=== PATIENT | male | born 1985 | race Caucasian/White ===

== ENCOUNTER 2016-05-25 10:32 | Inpatient (IN) | payer OTHER ==
[2016-05-25 10:59] VITALS: BMI 40.6
--- NOTE | 2016-05-25 13:45 | HP ---
COWS - Scale Resting Pulse: 2= [place] 101-120 Sweatin=Flushed/Facial Moisture Restless Observation: 3= Extraneous Movement Pupil Size: 2= Moderately Dilated Bone or Joint Aches: 2= Severe Diffuse Aches Runny Nose/ Eye Tearin= Runny Nose/Eyes GI Upset > 30mins: 3= Vomiting/Diarrhea Tremor Observation: 2= Slight Tremor Visible Yawning Observation: 2= >3x During Session Anxiety or Irritability: 2=Irritable/Anxious Goose Flesh Skin: 0=Smooth Skin COWS Score: 22 CIWA Score - CIWA Score Nausea/Vomitin Muscle Tremors: 3 Anxiety: 3 Agitation: 3 Paroxysmal Sweats: 2 Orientation: 0-Oriented Tacttile Disturbances: 2-Mild Itch/Numbness/Burn Auditory Disturbances: 2-Mild Harshness/Frighten Visual Disturbances: 2-Mild Sensitivity Headache: 2-Mild CIWA-Ar Total Score: 22 Admission [facility] - HPI Chief Complaint: i need help to stop using drugs xanax,cocaine,cannabis,heroin,mmtp 45 mgs/day, last medicated today Allergies/Adverse Reactions: Allergies Allergy/AdvReac Type Severity Reaction Status Date / Time shrimp Allergy Severe Rash Verified 05/25/16 13:18 History of Present Illness: this 30 years old male with xanax dependence,cocaine dependence,cannabis dependence,heroin dependence,mmtp 45 mgs/day,last medicated today, last detox [facility] 04/03 nicotine dependence anxiety,depression stated trying to overdose himself sat 05/23/16 no significant period of sobriety Exam Limitations: No Limitations - Ebola screening Have you traveled outside of the country in the last 21 days: No Have you had contact with anyone from an Ebola affected area: No Have you been sick,other than usual withdrawal symptoms: No - Review of Systems Constitutional: Chills, Diaphoresis, Malaise, Night Sweats, Changes in sleep, Weakness EENT: reports: Nose Congestion Respiratory: reports: No Symptoms reported Cardiac: reports: Palpitations GI: reports: Nausea, Poor Appetite, Vomiting, Abdominal cramping : reports: No Symptoms Reported Musculoskeletal: reports: Back Pain, Muscle Pain Integumentary: reports: Dryness Neuro: reports: Headache, Tremors Endocrine: reports: No Symptoms Reported Hematology: reports: No Symptoms Reported Psychiatric: reports: Depressed Patient History - Patient Medical History Hx Anemia: No Hx Asthma: No Hx Chronic Obstructive Pulmonary Disease (COPD): No Hx Cancer: No Hx Cardiac Disorders: No Hx Congestive Heart Failure: No Hx Hypertension: No Hx Hypercholesterolemia: No Hx Pacemaker: No HX Cerebrovascular Accident: No Hx Seizures: No Hx Dementia: No Hx Diabetes: No Hx Gastrointestinal Disorders: No Hx Liver Disease: No Hx Genitourinary Disorders: No Hx Sexually Transmitted Disorders: No Hx Renal Disease (ESRD): No Hx Thyroid Disease: No Hx Human Immunodeficiency Virus (HIV): No (last 03/03) Hx Hepatitis C: No Hx Depression: Yes (anxiety) Hx Suicide Attempt: Yes (overdose on 05/23/16) Other Medical History: nbo suicidal,no homicidal - Patient Surgical History Past Surgical History: No - PPD History Previous Implant?: Yes Documented Results: Negative w/o proof Implanted On Prior [facility] Admission?: No PPD to be Administered?: Yes - Smoking Cessation Smoking history: Current every day smoker Have you smoked in the past 12 months: Yes Aproximately how many cigarettes per day: 40 Cigars Per Day: 0 Hx Chewing Tobacco Use: No Initiated information on smoking cessation: Yes 'Breaking Loose' booklet given: 05/25/16 - Substance & Tx. History Hx Alcohol Use: No Hx Substance Use: Yes Substance Use Type: Cocaine, Heroin, Marijuana, Tranquilizers - Substances Abused Alprazolam (Xanax) Route: Oral Frequency: Daily Amount used: 12 mg Age of first use: 30 Date of Last Use: 05/23/16 Heroin Route: Inhalation Frequency: Daily Amount used: 6 bags Age of first use: 27 Date of Last Use: 05/25/16 Cocaine Route: Inhalation Frequency: Daily Amount used: 2 grams Age of first use: 25 Date of Last Use: 05/24/16 Marijuana/Hashish Route: Smoking Frequency: Daily Amount used: $20 Age of first use: 10 Date of Last Use: 05/24/16 Family Disease History - Family Disease History Family History: Denies Admission Physical Exam [facility] - Vital Signs Vital Signs: Vital Signs - 24 hr 05/25/16 10:56 Temperature 97.1 F L Pulse Rate 105 H Respiratory 18 Rate Blood Pressure 122/75 - Physical General Appearance: Yes: Moderate Distress, Tremorous, Irritable, Sweating HEENTM: Yes: Normal ENT Inspection, Pharynx Normal, Nasal Congestion Respiratory: Yes: Lungs Clear, Normal Breath Sounds, No Respiratory Distress Neck: Yes: No masses,lesions,Nodules, Supple, Trachea in good position Breast: Yes: Within Normal Limits Cardiology: Yes: Regular Rhythm, Tachycardia Abdominal: Yes: Within Normal Limits, Normal Bowel Sounds, Non Tender, Flat, Soft Genitourinary: Yes: Within Normal Limits Back: Yes: Normal Inspection, Muscle Spasm Musculoskeletal: Yes: Back pain Extremities: Yes: Normal Inspection, Normal Range of Motion, Tremors Neurological: Yes: glove turner II-XII NML intact, Fully Oriented, Alert, Motor Strength 5/5 Integumentary: Yes: Dry Lymphatic: Yes: Within Normal Limits - Diagnostic (1) Uncomplicated sedative, hypnotic or anxiolytic withdrawal Status: Acute (2) Cocaine dependence Status: Acute (3) Cannabis dependence Status: Acute (4) Opioid dependence Status: Acute (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 (6) Eczema Status: Acute (7) Nicotine dependence Status: Acute Qualifiers: Nicotine product type: cigarettes Substance use status: in withdrawal Qualified Code(s): F17.213 - Nicotine dependence, cigarettes, with withdrawal Cleared for Admission [facility] - Detox or Rehab [facility] Level of Care: Medically Managed Detox Regimen/Protocol: Valium [facility] Breath Alcohol Content Breath Alcohol Content: 0 Urine Drug Screen - Results Drug Screen Negative: No Urine Drug Screen Results: THC-Marijuana, SHANNA-Cocaine, OPI-Opiates, BZO- Benzodiazepines, MTD-Methadone
[2016-05-25] MEDS ORDERED: MENTHOL/PHENOL 1 EACH UD MM PRN (17:17)
[2016-05-25] MEDS ORDERED: NICOTINE POLACRILEX 2 MG GUM BC PRN ×2 (17:17→17:22)
[2016-05-25] MEDS ORDERED: LOPERAMIDE HCL 2 MG CAPSULE PO PRN (17:17)
[2016-05-25] MEDS ORDERED: IBUPROFEN 400 MG TABLET (FP) PO PRN (17:17)
[2016-05-25] MEDS ORDERED: MAG HYDROX/AL HYDROX/SIMETH 30 ML UNIT-DOSE CUP PO PRN (17:17)
[2016-05-25] MEDS ORDERED: MAGNESIUM CITRATE 300 ML BOTTLE PO PRN (17:17)
[2016-05-25] MEDS ORDERED: hydrOXYzine PAMOATE 25 MG CAPSULE (FP) PO PRN (17:17)
[2016-05-25] MEDS ORDERED: P-EPHED 60MG/TRIPROLIDI 2.5MG TABLET PO PRN (17:17)
[2016-05-25] MEDS ORDERED: diazePAM 5 MG TABLET PO PRN (17:17)
[2016-05-25] MEDS ORDERED: guaiFENesin/D-METHORPHAN HB 10 ML UNIT-DOSE CUPS PO PRN (17:17)
[2016-05-25] MEDS ORDERED: MAGNESIUM HYDROX 2400MG/30ML ORAL SUSPENSION 30 ML CUP PO PRN (17:17)
[2016-05-25] MEDS ORDERED: diphenhydrAMINE HCL 50 MG CAPSULE PO PRN (17:17)
[2016-05-25] MEDS ORDERED: ACETAMINOPHEN 325 MG TABLET (FP) PO PRN (17:17)
[2016-05-25] MEDS ORDERED: NICOTINE 14 MG/24 HOURS TOPICAL PATCH TD SCH (17:30)
[2016-05-25] MEDS ORDERED: diazePAM 5 MG TABLET PO ONE (18:30)
[2016-05-25] MEDS: NICOTINE 14 MG/24 HOURS TOPICAL PATCH TD SCH ×2 (18:32→20:57)
[2016-05-25] MEDS: THIAMINE HCL 100 MG TABLET (FP) PO SCH (22:41)
[2016-05-25] MEDS: diazePAM 5 MG TABLET PO SCH (22:41)
[2016-05-26] MEDS ORDERED: METHADONE HCL 40 MG DISPERSABLE TABLET ONE (04:27)
[2016-05-26] MEDS ORDERED: METHADONE HCL 5 MG TABLET ONE (04:27)
[2016-05-26] MEDS: diazePAM 5 MG TABLET PO SCH ×3 (05:45→23:06)
[2016-05-26] MEDS: METHADONE 40 MG, METHADONE 5 MG PO SCH (05:45)
[2016-05-26] MEDS ORDERED: METHADONE HCL 10 MG TABLET PO SCH (06:00)
[2016-05-26 09:04] LABS: HIV 1 & 2 AB NEGATIVE; HIV 1 AGp24 NEGATIVE
[2016-05-26] MEDS: NICOTINE 14 MG/24 HOURS TOPICAL PATCH TD SCH (10:51)
[2016-05-26] MEDS: PRENATAL VITAMINS W/ FOLIC ACID TABLET (FP) PO SCH (10:51)
--- NOTE | 2016-05-26 11:24 | PN ---
S CIWA - CIWA Score Nausea/Vomitin-No Nausea/No Vomiting Muscle Tremors: 4-Moderate,w/Arms Extend Anxiety: 4-Mod. Anxious/Guarded Agitation: 4-Moderately Restless Paroxysmal Sweats: 1-Minimal Palms Moist Orientation: 0-Oriented Tacttile Disturbances: 3-Moderate Itch/Numb/Burn Auditory Disturbances: 0-None Visual Disturbances: 0-None Headache: 0-None Present CIWA-Ar Total Score: 16 [facility] COWS - Scale Resting Pulse: 1= RI 81-100 Sweatin= Chills/Flushing Restless Observation: 3= Extraneous Movement Pupil Size: 2= Moderately Dilated Bone or Joint Aches: 4=Acute Joint/Muscle Pain Runny Nose/ Eye Tearin= Nasal Congestion GI Upset > 30mins: 1= Stomach Cramp Tremor Observation of Outstretched Hands: 2= Slight Tremor Visible Yawning Observation: 2= >3x During Session Anxiety or Irritability: 2=Irritable/Anxious Goose Flesh Skin: 0=Smooth Skin COWS Score: 19 S Progress Note (SOAP) Subjective: ANXIETY,SWEATS, IRRITABILITY,STOMACH CRAMPS, INTERMITTENT SLEEP. Objective: 05/26/16 11:23 Vital Signs Temperature 95.9 F L 05/26/16 10:23 Pulse Rate 95 H 05/26/16 10:23 Respiratory Rate 18 05/26/16 10:23 Blood Pressure 111/72 05/26/16 10:23 O2 Sat by Pulse Oximetry (%) Laboratory Last Values HIV 1&2 Antibody Screen Negative 05/25/16 13:00 HIV P24 Antigen Negative 05/25/16 13:00 OTHER LABS Assessment: 05/26/16 11:23 WITHDRAWAL SX Plan: CONTINUE DETOX
[2016-05-26 11:43] LABS: ALBUMIN 4.3 g/dl (3.4-5.0); ANION GAP 9 (8-16); CALCIUM 9.4 mg/dL (8.5-10.1); CO2 28 mmol/L (21-32); GLUCOSE,RANDOM 87 mg/dL (74-106); SGOT/AST 24 U/L (15-37); SGPT/ALT 40 U/L (12-78)
[2016-05-26 11:44] LABS: MCH 30.3 pg (25.7-33.7); MEAN CELL VOLUME 91.6 fl (80-96); MEAN PLT VOLUME 8.1 fl (7.5-11.1); PLATELET COUNT 362 K/MM3 (134-434); WHITE BLOOD COUNT 14.9 K/mm3 (4.0-10.0)
[2016-05-26 11:45] LABS: ALK PHOS 106 U/L (45-117); BILIRUBIN,TOTAL 0.5 mg/dL (0.2-1.0); COCKROFT - GAULT 173.04; TOT PROT 8.3 g/dl (6.4-8.2)
[2016-05-26] MEDS ORDERED: PNEUMOC 13-VAL CONJ-DIP CRM/PF 0.5 ML DISP.SYRIN IM ONE (12:00)
[2016-05-26] MEDS ORDERED: INFLUENZA VACCINE 45 MCG/0.5 ML (MDV 16-17) IM ONE ×2 (12:00→15:05)
[2016-05-26] MEDS ORDERED: PNEUMOCOCCAL 23 VACCINE 0.5 ML VIAL IM ONE ×2 (12:00→15:10)
--- NOTE | 2016-05-26 14:05 | EKG ---
Test Reason : Blood Pressure : / mmHG Vent. Rate : 082 BPM Atrial Rate : 082 BPM P-R Int : 164 ms QRS Dur : 108 ms QT Int : 402 ms P-R-T Axes : 060 043 016 degrees QTc Int : 469 ms NORMAL SINUS RHYTHM MINIMAL VOLTAGE CRITERIA FOR LVH, MAY BE NORMAL VARIANT BORDERLINE ECG NO PREVIOUS ECGS AVAILABLE Confirmed by ARLIN SCHERER, ESTELA ([id number]) on 05/26/2016 2:05:14 PM Referred By: Confirmed By:ESTELA OLIVEROS MD
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
[2016-05-26] MEDS ORDERED: QUEtiapine FUMARATE 25 MG TABLET (FP) PO SCH (22:00)
[2016-05-26] MEDS: THIAMINE HCL 100 MG TABLET (FP) PO SCH (23:05)
[2016-05-27] MEDS ORDERED: METHADONE HCL 5 MG TABLET ONE (03:13)
[2016-05-27] MEDS ORDERED: METHADONE HCL 40 MG DISPERSABLE TABLET ONE (03:13)
[2016-05-27] MEDS: METHADONE 40 MG, METHADONE 5 MG PO SCH (05:54)
[2016-05-27] MEDS ORDERED: ESCITALOPRAM OXALATE 10 MG TABLET (FP) PO SCH (10:00)
[2016-05-27] MEDS ORDERED: diazePAM 5 MG TABLET PO SCH (10:00)
[2016-05-27 10:24] VITALS: BP 129/86; PULSE 80; TEMP 97.1
[2016-05-27] MEDS: NICOTINE 14 MG/24 HOURS TOPICAL PATCH TD SCH (10:29)
[2016-05-27] MEDS: PRENATAL VITAMINS W/ FOLIC ACID TABLET (FP) PO SCH (10:29)
--- NOTE | 2016-05-27 12:15 | DS ---
[facility] Detox Discharge Summary Admission Date: 05/25/16 Discharge Date: 05/27/16 - History Present History: Cannabis Dependence, Cocaine Dependence, Sedative Dependence, MMTP Additional Comments: PT DECLINED TO COMPLETE DETOX TX. PT WAS TEAMED BY WOOD GOUGER AND COUNSELORS NARGIS AND ARANZA REGARDING ARGUMENT BETWEEN PT AND STAFF NURSE LEONARDO ABOUT SMOKING SUSPICIONS. PT DENIES AND NOTHING WAS FOUND ON PATIENT BUT HE BECAME LOUD AND ANGRY AT STAFF. PT THEN DECIDED HE WANTS TO LEAVE. ALL EFFORTS TO ENCOURAGE TREATMENT FAILED. Pertinent Past History: ECZEMA - Physical Exam Results Vital Signs: Vital Signs Temperature 97.1 F L 05/27/16 10:23 Pulse Rate 80 05/27/16 10:23 Respiratory Rate 18 05/27/16 10:23 Blood Pressure 129/86 05/27/16 10:23 O2 Sat by Pulse Oximetry (%) Pertinent Admission Physical Exam Findings: WITHDRAWAL SX - Treatment Hospital Course: Discharged Condition Good - Medication Discharge Medications: Ambulatory Orders Trazodone HCl [Desyrel -] 50 mg PO HS 05/25/16 Escitalopram Oxalate [Lexapro -] 10 mg PO DAILY #30 tablet 05/26/16 Quetiapine Fumarate [Seroquel -] 25 mg PO HS #30 tablet 05/26/16 - Diagnosis (1) Cannabis dependence Status: Acute (2) Cocaine dependence Status: Acute (3) Methadone maintenance therapy patient Status: Chronic (4) Nicotine dependence Status: Acute Qualifiers: Nicotine product type: cigarettes Substance use status: in withdrawal Qualified Code(s): F17.213 - Nicotine dependence, cigarettes, with withdrawal (5) Uncomplicated sedative, hypnotic or anxiolytic withdrawal Status: Acute - AMA Did Patient Leave Against Medical Advice: Yes (AMA)
[2016-05-29] MEDS ORDERED: diazePAM 5 MG TABLET PO SCH (10:00)
== END 2016-05-27 11:21 | disposition left against medical advice (07) | DRG 770 ==
LOC: YASAS 10:32 → Y3N 14:33
PROVIDERS: ADMIT Internal Medicine; ATTEND Internal Medicine
PROC: HZ2ZZZZ Detoxification Services for Substance Abuse Treatment (ICD-10-PCS; principal; 2016-05-27)
DX: F11.23 Opioid dependence with withdrawal (principal); F13.230 Sedative, hypnotic or anxiolytic dependence with withdrawal, uncomplicated; F14.20 Cocaine dependence, uncomplicated; F12.20 Cannabis dependence, uncomplicated; F17.213 Nicotine dependence, cigarettes, with withdrawal; L30.9 Dermatitis, unspecified
CPT/HCPCS: 36415; 80053; 85027; 86593; 87389; 90732; 93005; 93010; G0008; G0009; Q2037